=== PATIENT | female | born 1945 | race Caucasian/White ===

== ENCOUNTER 2023-02-26 16:20 | Outpatient (REF) | payer OTHER, SELFPAY ==
[2023-02-26 17:30] LABS: MANUAL DIFF FLAG NO
[2023-02-26 17:35] LABS: Basophils Percent Auto 0.4 % (0-2); Eosinophils Absolute Auto 0.1 X10*3/uL (0.0-0.4); Hematocrit 37.2 % (37.0-47.0); Hemoglobin 11.4 g/dl (12.0-16.0); Imm Gran Abs Auto 0.03 X10*3/uL (0.00-0.03); Imm Gran Pct Auto 0.4 % (0.0-0.4); Lymphocytes Absolute Auto 1.2 X10*3/uL (1.2-4.9); Lymphocytes Percent Auto 15.2 % (20-40); Mean Corpuscular HGB Conc 30.6 g/dl (31.0-35.0); Mean Corpuscular Hemoglobin 26.8 pg (27.0-33.0); Mean Corpuscular Volume 87.5 fL (80.0-98.0); Mean Platelet Volume 10.4 fL (9.4-12.3); Monocytes Absolute Auto 0.5 X10*3/uL (0.1-1.2); Monocytes Percent Auto 6.6 % (2-11); Neutrophils Percent Auto 76.4 % (45-73); Platelet Count 195 X10*3/uL (160-400); Red Blood Count 4.25 X10*6/uL (4.20-5.50); Red Cell Distribution Width 14.7 % (11.0-16.0); White Blood Count 7.8 X10*3/uL (4.8-10.8)
[2023-02-26 18:31] LABS: Iron 37 mcg/dL (30-160); Percent Iron Saturation 14 % (15-50); Total Iron Binding Capacity 264 mcg/dL (228-428); Unsaturated Iron Binding 227 ug/dL
[2023-02-26 18:45] LABS: Ferritin 23 ng/mL (10-250)
== END 2023-02-26 16:21 | disposition home or self-care (01) ==
LOC: HO.HHCL 16:20
PROVIDERS: Visit Provider Registered Nurse
DX: D50.9 Iron deficiency anemia, unspecified (principal)
CPT/HCPCS: 36415; 82728; 83540; 85025

== ENCOUNTER 2024-12-24 15:34 | Outpatient (REF) | payer OTHER, SELFPAY ==
--- NOTE | ~2024-12-24 | XR_ITS ---
EXAMINATION: XR KNEE, LEFT CLINICAL INFORMATION: chroic left knee pain COMPARISON: None available. TECHNIQUE: AP and crosstable lateral view x-rays of the left knee. FINDINGS: There is no joint effusion. The AP view is obliqued. The lateral joint space is not well-demonstrated. There is mild to moderate narrowing of the medial joint space. Marginal osteophyte are present in the patella. Likely, there is osteopenia. There are moderate vascular calcifications. There is fatty streaking of the musculature suggesting sarcopenia. XR/XR knee LT 2V IMPRESSION: Patellofemoral joint osteoarthritis and mild to moderate narrowing of the medial joint space. The lateral joint space is obliqued and not well demonstrated. Suspected osteopenia/sarcopenia. Electronically signed by: Jagdish Bryant MD 12/24/2024 04:47 PM EDT
[2024-12-24 17:53] LABS: MANUAL DIFF FLAG NO
[2024-12-24 18:02] LABS: Estimated Average Glucose 108 mg/dL; Hemoglobin A1c % 5.4 % (<6.0); Total Hemoglobin (HGBA1C) 2973.3154 umol/L
[2024-12-24 18:04] LABS: Basophils Percent Auto 0.4 % (0-2); Eosinophils Absolute Auto 0.1 X10*3/uL (0.0-0.4); Eosinophils Percent Auto 1.1 % (0-4); Hematocrit 35.7 % (37.0-47.0); Hemoglobin 11.3 g/dl (12.0-16.0); Imm Gran Abs Auto 0.03 X10*3/uL (0.00-0.03); Imm Gran Pct Auto 0.3 % (0.0-0.4); Lymphocytes Absolute Auto 1.7 X10*3/uL (1.2-4.9); Lymphocytes Percent Auto 19.4 % (20-40); Mean Corpuscular HGB Conc 31.7 g/dl (31.0-35.0); Mean Corpuscular Hemoglobin 25.9 pg (27.0-33.0); Mean Corpuscular Volume 81.9 fL (80.0-98.0); Mean Platelet Volume 10.8 fL (9.4-12.3); Monocytes Absolute Auto 0.6 X10*3/uL (0.1-1.2); Monocytes Percent Auto 6.9 % (2-11); Neutrophils Absolute Auto 6.4 x10*3/uL (2.0-8.3); Neutrophils Percent Auto 71.9 % (45-73); Platelet Count 235 X10*3/uL (160-400); Red Blood Count 4.36 X10*6/uL (4.20-5.50); Red Cell Distribution Width 15.5 % (11.0-16.0)
[2024-12-24 18:11] LABS: Alanine Aminotransferase 9 U/L (0-31); Albumin Level 3.7 g/dL (3.5-5.0); Alkaline Phosphatase 97 U/L (39-117); Anion Gap 12 (12-20); Aspartate Amino Transferase 20 U/L (5-31); Bilirubin Total 0.3 mg/dL (0.0-1.0); Blood Urea Nitrogen 22 mg/dL (9-16); Calcium 8.8 mg/dL (8.4-10.2); Carbon Dioxide 29 mmol/L (22-29); Chloride 105 mmol/L (96-108); Cholesterol 101 mg/dL (<200); Estimated Glomerular Filt Rate 56; Glucose Random 111 mg/dL (60-115); HDL Cholesterol 42 mg/dL (>40); Iron 30 mcg/dL (30-160); LDL Cholesterol Calculated 40 mg/dL (<100); Percent Iron Saturation 11 % (15-50); Potassium 4.4 mmol/L (3.3-5.1); Sodium 142 mmol/L (135-145); Total Iron Binding Capacity 261 mcg/dL (228-428); Total Protein 6.7 g/dL (6.5-8.0); Triglycerides 98 mg/dL (<150); Unsaturated Iron Binding 231 ug/dL
[2024-12-24 18:33] LABS: Ferritin 15 ng/mL (10-250); TSH reflex Free T4 2.67 uIU/mL (0.32-4.0)
[2024-12-24 18:44] LABS: Folate 15.1 ng/mL (> or = 4.0); Vitamin B12 411 pg/mL (200-900)
[2024-12-25 08:31] LABS: HBS Num1 0.72 mIU/mL (0-7.99); HBc Num1 0.07 S/CO (0.00-0.79); HBsAGNum1 0.47 S/CO (0.00-0.99); HIV AB/AG Nonreactive (Nonreactive); HIV Num 1 0.23 S/CO (0.00-0.99); Hepatitis B Core Antibody Nonreactive (Nonreactive); Hepatitis B Surface Antigen Negative (Negative); ~HepC Num1 0.11 S/CO (0.00-0.79); ~Hepatitis B Surface Antibody NONREACTIVE (Nonreactive); ~Hepatitis C Antibody Nonreactive (Nonreactive)
[2024-12-25 08:44] LABS: Syphilis Screen Nonreactive (Nonreactive)
== END 2024-12-24 15:35 | disposition home or self-care (01) ==
LOC: HO.HHCL 15:34
PROVIDERS: Internal Medicine; PCP Student in an Organized Health Care Education/Training Program; Visit Provider Student in an Organized Health Care Education/Training Program
DX: I10 Essential (primary) hypertension (principal); E11.9 Type 2 diabetes mellitus without complications; M25.562 Pain in left knee; G89.29 Other chronic pain; Z11.4 Encounter for screening for human immunodeficiency virus [HIV]; Z00.00 Encounter for general adult medical examination without abnormal findings
CPT/HCPCS: 36415; 73560; 80053; 80061; 82306; 82607; 82728; 82746; 83036; 83540; 84443; 85025; 86704; 86706; 86780; 86803; 87340; 87389

== ENCOUNTER → 2024-12-24 16:03 | Outpatient (BNV) | payer OTHER, SELFPAY | PROVIDERS: PCP Student in an Organized Health Care Education/Training Program; Visit Provider Radiology Diagnostic Radiology | DX: M17.12 Unilateral primary osteoarthritis, left knee (principal) | CPT/HCPCS: 73560 ==

== ENCOUNTER 2024-12-29 15:06 | Outpatient (REF) | payer OTHER, SELFPAY ==
--- OUTSIDE RECORDS SUMMARY | 2024-12-29 16:00 | XMS_ITS | Clinical Summary ---
Author Organization [facility] Address [address] [place] [address] Care Team Providers Care Contract Designer Name Role Phone Unavailable Primary Care Provider Unavailabl e Source Comments PLEASE NOTE, if this patient is a minor, it may be UNLAWFUL to discuss sensitive information that is contained in these records (such as FAMILY PLANNING, MENTAL HEALTH or SUBSTANCE ABUSE) with the minor patient's parent or other person without the patient's specific authorization.[facility] Allergies No known active allergies Medications albuterol sulfate 90 mcg/actuation inhalerIndication s:Primary hypertension 2 Active ALCOHOL PREP PADSIndications:P rimary hypertension USE THREE TIMES DAILY DIRECTED 2 Active aspirin 81 mg chewable tabletIndications :Primary hypertension TAKE 1 TABLET BY MOUTH EVERY EVENING (CHEW) 2 Active atorvastatin (LIPITOR) 20 mg tabletIndications :Primary hypertension Take 20 mg by mouth nightly at bedtime 2 Active FREESTYLE LITE STRIPS stripsIndications :Primary hypertension Test blood sugar 3 times daily. 2 Active carvediloL (COREG) 3.125 mg tabletIndications :Primary hypertension TAKE 1 TABLET BY MOUTH TWICE DAILY IN THE MORNING AND IN THE EVENING WITH FOOD 2 Active citalopram (CELEXA) 10 mg tabletIndications :Primary hypertension Take 10 mg by mouth every morning 2 Active VITAMIN D3 25 mcg (1,000 unit) capsuleIndication s:Primary hypertension Take 1 Capsule by mouth every morning 2 Active gabapentin (NEURONTIN) 100 mg capsuleIndication s:Primary hypertension Take 100 mg by mouth nightly at bedtime 2 Active melatonin 5 mg tabIndications:Pr imary hypertension Take 1 Tablet by mouth nightly at bedtime for sleep 2 Active metFORMIN (GLUCOPHAGE) 1,000 mg tabletIndications :Type 2 diabetes mellitus without complication, without long-term current use of insulin ([facility]) TAKE 1 TABLET BY MOUTH ONCE DAILY WITH BREAKFAST FOR DIABETES 30 Tablet 2 2 Active ferrous sulfate 325 mg (65 mg iron) tabletIndications :Iron deficiency anemia secondary to inadequate dietary iron intake Take 1 Tablet by mouth 2 (two) times daily 180 Tablet 3 Active Active Problems No known active problems Social History Tobacco Use Types Packs/Day Years Used Date Smoking Tobacco: Former Smokeless Tobacco: Never Alcohol Use Standard Drinks/Week Comments Never 0 (1 standard drink = 0.6 oz pur e alcohol) Social Connections Answer Date Recorded Connectedness 0 10/04/2021 Financial Resource Strain Answer Date R ecorded Financial Resource Strain 0 2021 Stress Answer Date Recorded Stress 0 10/04/2021 Physical Activity Answer Date Recorded Physical Activity 0 09/25/2021 Food Insecurity Answer Date Recorded Food 0 10/04/2021 Transportation Needs Answer Date Record ed Transportation 0 10/04/2021 Housing Stability Answer Date Recorded Housing 0 10/04/2021 Safety and Environment Answer Date Billy rded Safety 0 10/04/2021 Utilities Answer Date Recorded Utilities 0 10/04/2021 Employment Answer Date Recorded Employment 0 09/25/2021 Comments No Sex and Gender Information Value Date Recorded Sex Assigned at Female 10/27/2021 9:00 AM PDT Legal Sex Female 11:10 AM PDT Gender Identity Female 10/27/2021 9:00 AM PDT Sexual Orientation Straight 10/27/2021 9: 00 AM PDT Last Filed Vital Signs Vital Sign Reading Time Taken Comments Blood Pressure 162/80 10/04/2021 4:01 PM EDT Pulse 74 10/04/2021 4:01 PM EDT Temperature 36.6 C (97.8 F) 10/04/2021 4:01 PM EDT Respiratory Rate - - Oxygen Saturation 97% 10/04/2021 4:01 PM EDT Inhaled Oxygen Concentration - - Weight - - Height - - Body Mass Index - - Plan of Treatment Not on file Insurance [facility]
[2024-12-29 16:39] LABS: Microalbum/Creatinine Ratio Ur 17.2 ug/mg cr (<30)
[2024-12-30 12:03] LABS: CT PCR Urine NOT DETECTED (Not Detect.); NG PCR Urine NOT DETECTED (Not Detect.)
== END 2024-12-29 15:07 | disposition home or self-care (01) ==
LOC: HO.HHCL 15:06
PROVIDERS: Internal Medicine; PCP Student in an Organized Health Care Education/Training Program; Visit Provider Student in an Organized Health Care Education/Training Program
DX: I10 Essential (primary) hypertension (principal); E11.9 Type 2 diabetes mellitus without complications
CPT/HCPCS: 36415; 82043; 82570; 87491; 87591